=== PATIENT | male | born 1990 | race Caucasian/White ===

== ENCOUNTER 2016-07-25 15:23 | Emergency (ER) | payer BC ==
[2016-07-25 15:29] VITALS: BP 139/68; PULSE 78; RESP 17; TEMP 97.8
[2016-07-25] MEDS ORDERED: HYDROcodone/APAP 5-325MG 1 EACH TAB PO STA (15:47)
--- NOTE | 2016-07-25 15:47 | ED ---
Back Pain HPI - General Chief Complaint: Back Pain/Injury Stated Complaint: Back Pain/Middle Time Seen by Provider: 07/25/16 15:34 Source: patient, RN notes reviewed Limitations: no limitations - History of Present Illness Initial Comments: Patient is a 26-year-old male presents emergency room for evaluation of back pain. Patient states back pain began last night. Patient states the pain is primarily on the right side of his mid back. Patient denies any recent changes in physical activity, recent heavy lifting or falls. 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 Patient states that he took Tylenol with no relief of symptoms. Patient denies any numbness or tingling going down his legs. Patient denies fecal or urinary incontinence. Patient denies urinary retention. Patient denies any other symptoms or complaints. - Related Data Previous Rx's Medication Instructions Recorded HYDROcodone/APAP 5-325MG [[place] 1 tab PO Q6HR PRN #10 tab 07/25/16 5-325] Ibuprofen [Motrin] 600 mg PO Q6HR PRN #20 tab 07/25/16 Orphenadrine [Norflex] 100 mg PO Q12H PRN #10 tablet.er 07/25/16 Allergies Allergy/AdvReac Type Severity Reaction Status Date / Time No Known Allergies Allergy Verified 07/25/16 15:51 Review of Systems ROS Statement: Those systems with pertinent positive or pertinent negative responses have been documented in the HPI. ROS Other: All systems not noted in ROS Statement are negative. Past Medical History Past Medical History: No Reported History History of Any Multi-Drug Resistant Organisms: None Reported Past Surgical History: No Surgical Hx Reported Past Psychological History: No Psychological Hx Reported Smoking Status: Current every day smoker Past Alcohol Use History: Occasional Past Drug Use History: None Reported General Exam - General Exam Comments Initial Comments: Laying in exam bed, no acute distress. Limitations: no limitations General appearance: alert, in no apparent distress Head exam: Present: atraumatic, normocephalic, normal inspection Eye exam: Present: normal appearance ENT exam: Present: normal exam Neck exam: Present: normal inspection Respiratory exam: Present: normal lung sounds bilaterally. Absent: respiratory distress Cardiovascular Exam: Present: regular rate, normal rhythm, normal heart sounds Extremities exam: Present: normal inspection Back exam: Present: full ROM, muscle spasm (Right paraspinal tenderness over thoracic spine), paraspinal tenderness (Right thoracic paraspinal tenderness). Absent: vertebral tenderness Neurological exam: Present: alert, oriented X3, CN II-XII intact Psychiatric exam: Present: normal affect, normal mood Skin exam: Present: warm, dry, intact, normal color. Absent: rash Course Vital Signs 07/25/16 15:25 Temperature 97.8 F Pulse Rate 78 Respiratory 17 Rate Blood Pressure 139/68 O2 Sat by Pulse 100 Oximetry Medical Decision Making - Medical Decision Making Patient is 26-year-old male presents to the emergency room for evaluation of thoracic back pain. No known injury. Patient has no neuro deficits. Place patient on pain medications and advised him to follow-up with his primary care provider. Patient states he understands everything that was discussed with him. Return parameters discussed. Case discussed with Dr. Chisholm. Disposition Clinical Impression: Strain of thoracic region Disposition: HOME SELF-CARE Condition: Good Instructions: Back Pain (ED) Additional Instructions: Warm moist heat. Take medications as needed. Please follow up with primary care provider in 1-2 days. If any new symptom arises or symptoms worsen, return to ER as soon as possible. Prescriptions: HYDROcodone/APAP 5-325MG [[place] 5-325] 1 tab PO Q6HR PRN #10 tab PRN Reason: Pain Ibuprofen [Motrin] 600 mg PO Q6HR PRN #20 tab PRN Reason: Pain Orphenadrine [Norflex] 100 mg PO Q12H PRN #10 tablet.er PRN Reason: Muscle Pain Referrals: Hans Jansen MD [Primary Care Provider] - 1-2 days Time of Disposition: 15:48
== END 2016-07-25 16:01 | disposition home or self-care (01) ==
LOC: EC 15:23
DX: S29.012A Strain of muscle and tendon of back wall of thorax, initial encounter (principal); F17.200 Nicotine dependence, unspecified, uncomplicated; X50.1XXA Overexertion from prolonged static or awkward postures, initial encounter
CPT/HCPCS: 99283

== ENCOUNTER 2016-07-27 18:03 | Emergency (ER) | payer BC ==
[2016-07-27 18:21] VITALS: RESP 18; TEMP 98.1
--- NOTE | 2016-07-27 18:30 | ED ---
General Adult HPI - General Chief complaint: Recheck/Abnormal Lab/Rx Stated complaint: Back Pain Time Seen by Provider: 07/27/16 18:26 Source: patient, RN notes reviewed Mode of arrival: ambulatory Limitations: no limitations - History of Present Illness Initial comments: Is a 26-year-old male presents with dizziness with standing and with moving his head side to side 2 days. Patient states when he gets dizzy also feels nauseous and sometimes vomits. Patient states the dizziness comes on suddenly upon standing or moving his head side to side and subsides with laying down. Patient denies any fever/chills or head injury. Patient states this never happened to him before. Patient denies any ringing or roaring in the ears. Patient is not on any medications and has only taken one dose of the [place] and Norflex that was prescribed in for back pain 2 days ago. Patient states that the symptoms do not correlate with these doses of these medications. Patient states he's had a mild case of diarrhea. Patient denies any recent fever, chills, shortness breath, chest pain, abdominal pain, hematemesis, hematochezia , back pain, numbness, tingling, hematuria, headache, or visual changes, or any other complaints. - Related Data Previous Rx's Medication Instructions Recorded HYDROcodone/APAP 5-325MG [[place] 1 tab PO Q6HR PRN #10 tab 07/25/16 5-325] Ibuprofen [Motrin] 600 mg PO Q6HR PRN #20 tab 07/25/16 Orphenadrine [Norflex] 100 mg PO Q12H PRN #10 tablet.er 07/25/16 Meclizine [Antivert] 12.5 mg PO TID 7 Days 07/27/16 Ondansetron [Zofran] 4 mg PO Q8HR 7 Days 07/27/16 Allergies Allergy/AdvReac Type Severity Reaction Status Date / Time No Known Allergies Allergy Verified 07/27/16 18:21 Review of Systems ROS Statement: Those systems with pertinent positive or pertinent negative responses have been documented in the HPI. ROS Other: All systems not noted in ROS Statement are negative. Past Medical History Past Medical History: No Reported History History of Any Multi-Drug Resistant Organisms: None Reported Past Surgical History: No Surgical Hx Reported Past Psychological History: No Psychological Hx Reported Smoking Status: Current every day smoker Past Alcohol Use History: Occasional Past Drug Use History: None Reported General Exam - General Exam Comments Initial Comments: General: The patient is awake and alert, in no distress, and does not appear acutely ill. Eye: Mild horizontal nystagmus. Pupils are equal, round and reactive to light, extra-ocular movements are intact. No pain with extraocular movements. There is normal conjunctiva bilaterally. No signs of icterus. Ears: TMs pink and pearly with intact cone of light bilaterally. Normal external ear canals Nose: Nasal turbinates pink and moist Mouth and throat: There are moist mucous membranes and no oral lesions. Neck: The neck is supple, there is no tenderness or JVD. Cardiovascular: There is a regular rate and rhythm. No murmur, rub or gallop is appreciated. Respiratory: Lungs are clear to auscultation, respirations are non-labored, breath sounds are equal. No wheezes, stridor, rales, or rhonchi. Gastrointestinal: Soft, non-distended, non-tender abdomen without masses or organomegaly noted. There is no rebound or guarding present. Bowel sounds are unremarkable. Musculoskeletal: Normal ROM, no tenderness. Strength 5/5. Sensation intact. Radial Pulses equal bilaterally 2+. Neurological: A&O x 3. CN II-XII intact, There are no obvious motor or sensory deficits. Coordination appears grossly intact. Speech is normal. Skin: Skin is warm and dry and no rashes or lesions are noted. Psychiatric: Cooperative, appropriate mood & affect, normal judgment. Limitations: no limitations Course Vital Signs 07/27/16 07/27/16 18:18 19:36 Temperature 98.1 F 98.1 F Pulse Rate 65 72 Respiratory 18 18 Rate Blood Pressure 132/67 136/79 O2 Sat by Pulse 100 98 Oximetry Medical Decision Making - Medical Decision Making This is a 26-year-old male presents with dizziness and vomiting 2 days. On physical exam patient is neurologically intact. Mild nystagmus during eye exam. Patient is afebrile in the EC. Patient's abdomen is soft, nondistended and nontender. Patient was given Antivert and Reglan in the EC today. A CT of the brain without contrast was done and reviewed showing: No acute intracranial hemorrhage, mass effect, or midline shift is seen. Prominent adenoids are incidentally noted. Reported by Dr. Gaspar. I discussed results with patient. Discussed that patient will be given a prescription for Antivert and Reglan. I discussed that the patient's symptoms are most likely from vertigo and that he should follow-up with ENT or neurology. Discussed that patient should also follow-up with his primary care physician in one to 2 days or return to the EC for any worsening symptoms or for any further concerns. Discussed return parameters. Patient was receptive to this plan and patient will be discharged home. I discussed this case with attending physician Dr. Smith who agrees with plan as stated above. Disposition Clinical Impression: BPPV (benign paroxysmal positional vertigo) Disposition: HOME SELF-CARE Condition: Good Instructions: Benign Paroxysmal Positional Vertigo (ED) Additional Instructions: Please use Antivert and Reglan as prescribed. Please follow-up with ENT or neurology as soon as possible. Please follow-up with family doctor in the next 2 days of symptoms have not improved. Please return to emergency room if the symptoms increase or worsen or for any other concerns. Prescriptions: Meclizine [Antivert] 12.5 mg PO TID 7 Days Ondansetron [Zofran] 4 mg PO Q8HR 7 Days Referrals: Hans Jansen MD [Primary Care Provider] - 1-2 days Aram Munoz MD [STAFF PHYSICIAN] - 1-2 days Rashida Gallo MD [STAFF PHYSICIAN] - 1-2 days Time of Disposition: 19:21
[2016-07-27] MEDS ORDERED: METOCLOPRAMIDE 5 MG TAB PO STA (18:38)
[2016-07-27] MEDS ORDERED: MECLIZINE 12.5 MG TAB PO STA (18:38)
--- NOTE | 2016-07-27 19:09 | CT ---
EXAMINATION TYPE: CT brain wo con DATE OF EXAM: 07/27/2016 7:02 PM COMPARISON: NONE HISTORY: Dizziness, nausea, and numbness and tingling to bilateral legs. CT DLP: 1121.00 mGycm Automated exposure control for dose reduction was used. FINDINGS: There is no acute intracranial hemorrhage, mass effect, or midline shift identified. The ventricles and sulci are within normal limits in size. The globes are intact and the visualized sinuses are rajinder ar. IMPRESSION: NO ACUTE INTRACRANIAL HEMORRHAGE, MASS EFFECT, OR MIDLINE SHIFT IS SEEN. Prominent adenoids are incidentally noted.
[2016-07-27 19:44] VITALS: BP 136/79; PULSE 72
== END 2016-07-27 19:36 | disposition home or self-care (01) ==
LOC: EC 18:03
DX: H81.10 Benign paroxysmal vertigo, unspecified ear (principal); R11.2 Nausea with vomiting, unspecified; F17.200 Nicotine dependence, unspecified, uncomplicated
CPT/HCPCS: 70450; 99283

== ENCOUNTER 2018-02-28 04:28 | Emergency (ER) | payer BC ==
--- NOTE | 2018-02-28 05:10 | ED ---
General Adult HPI - General Chief complaint: Neuro Symptoms/Deficit Stated complaint: L arm numbness,weakness Time Seen by Provider: 02/28/18 04:42 Source: patient Mode of arrival: ambulatory Limitations: no limitations - History of Present Illness Initial comments: This patient is 27-year-old man who presents to be evaluated for some left forearm pains that developed tonight while at work. The patient states that when he flexes and extends his wrist she gets pains in the left wrist and hand. He denied any trauma, but does state that he performs the same task repeatedly at work. Patient states that the pain feels like "a pinched nerve" the patient is not having any weakness or numbness of the extremity. He is right-handed. -: hour(s) Location: left, upper extremity Radiation: non-radiation Quality: other Consistency: intermittent Improves with: none Worsens with: none Associated Symptoms: denies other symptoms - Related Data Home Medications Medication Instructions Recorded Confirmed Dextroamphetamine/Amphetamine 20 mg PO DAILY 05/25/17 05/25/17 [Adderall] Previous Rx's Medication Instructions Recorded Ibuprofen [Motrin] 600 mg PO Q8HR PRN #20 tab 05/25/17 Ibuprofen [Motrin] 600 mg PO Q8HR PRN #20 tab 02/28/18 Allergies Allergy/AdvReac Type Severity Reaction Status Date / Time No Known Allergies Allergy Verified 02/28/18 04:36 Review of Systems ROS Statement: Those systems with pertinent positive or pertinent negative responses have been documented in the HPI. ROS Other: All systems not noted in ROS Statement are negative. Constitutional: Denies: fever, chills, weakness Respiratory: Denies: cough, dyspnea Cardiovascular: Denies: chest pain, palpitations Gastrointestinal: Denies: abdominal pain, vomiting Musculoskeletal: Denies: back pain, joint swelling, arthralgia Skin: Denies: rash Neurological: Denies: headache, weakness, numbness Past Medical History Past Medical History: No Reported History History of Any Multi-Drug Resistant Organisms: None Reported Past Surgical History: No Surgical Hx Reported Past Psychological History: No Psychological Hx Reported Smoking Status: Current every day smoker Past Alcohol Use History: Occasional Past Drug Use History: None Reported General Exam Limitations: no limitations General appearance: alert, in no apparent distress Head exam: Present: atraumatic, normocephalic Eye exam: Present: normal appearance. Absent: scleral icterus, conjunctival injection ENT exam: Present: normal oropharynx Neck exam: Present: full ROM. Absent: tenderness Respiratory exam: Present: normal lung sounds bilaterally. Absent: respiratory distress, wheezes, rales, rhonchi, stridor Cardiovascular Exam: Present: regular rate, normal rhythm, normal heart sounds. Absent: systolic murmur, diastolic murmur, rubs, gallop GI/Abdominal exam: Present: soft. Absent: tenderness, guarding, rebound, rigid Extremities exam: Present: normal inspection, full ROM, normal capillary refill. Absent: tenderness Back exam: Present: normal inspection Neurological exam: Present: alert Psychiatric exam: Present: agitated Skin exam: Present: warm, dry, intact, normal color. Absent: rash Course Vital Signs 02/28/18 04:33 Temperature 98.2 F Pulse Rate 98 Respiratory 18 Rate Blood Pressure 145/94 O2 Sat by Pulse 100 Oximetry EKG Findings - EKG Comments: EKG Findings:: The EKG is similar to the comparison from 05/25/2017 - EKG Results: EKG: interpreted by RICK, sinus rhythm (With sinus arrhythmia, rate 78 bpm), normal axis (Normal), normal ST/T (Normal), no acute changes - Blocks, [place], Hypertrophy, ST Abn: AV and intraventricular conduction: right bundle branch block (fixed/ intermittent, complete/incomplete) (There appears to be partial right bundle branch block) Medical Decision Making - Lab Data Result diagrams: 02/28/18 04:45 02/28/18 04:45 Lab Results 02/28/18 02/28/18 Range/Units 04:45 04:45 WBC 9.5 (3.8-10.6) k/uL RBC 4.86 (4.30-5.90) m/uL Hgb 14.4 (13.0-17.5) gm/dL Hct 43.0 (39.0-53.0) % MCV 88.4 (80.0-100.0) fL MCH 29.7 (25.0-35.0) pg MCHC 33.6 (31.0-37.0) g/dL RDW 12.2 (11.5-15.5) % Plt Count 308 (150-450) k/uL Sodium 139 (137-145) mmol/L Potassium 4.1 (3.5-5.1) mmol/L Chloride 103 (98-107) mmol/L Carbon Dioxide 28 (22-30) mmol/L Anion Gap 8 mmol/L BUN 15 (9-20) mg/dL Creatinine 0.80 (0.66-1.25) mg/dL Est GFR (CKD-EPI)AfAm >90 (>60 ml/min/1.73 sqM) Est GFR (CKD-EPI)NonAf >90 (>60 ml/min/1.73 sqM) Glucose 105 H (74-99) mg/dL Calcium 10.0 (8.4-10.2) mg/dL Magnesium 2.2 (1.6-2.3) mg/dL Disposition Clinical Impression: Carpal tunnel syndrome of left wrist Disposition: HOME SELF-CARE Condition: Good Instructions: Paresthesia (ED) Prescriptions: Ibuprofen [Motrin] 600 mg PO Q8HR PRN #20 tab PRN Reason: Pain Is patient prescribed a controlled substance at d/c from ED?: No Referrals: Hans Jansen MD [Primary Care Provider] - 1-2 days
[2018-02-28 05:19] LABS: HGB 14.4 gm/dL (13.0-17.5); MCH 29.7 pg (25.0-35.0); MCHC 33.6 g/dL (31.0-37.0); MCV 88.4 fL (80.0-100.0); Mean Platelet Volume 6.9; Platelet Count 308 k/uL (150-450); RBC 4.86 m/uL (4.30-5.90); RDW 12.2 % (11.5-15.5); WBC 9.5 k/uL (3.8-10.6)
[2018-02-28 05:32] LABS: Anion Gap 8 mmol/L; Blood Urea Nitrogen 15 mg/dL (9-20); Carbon Dioxide 28 mmol/L (22-30); Chloride 103 mmol/L (98-107); Glucose 105 mg/dL (74-99); Magnesium 2.2 mg/dL (1.6-2.3); Potassium 4.1 mmol/L (3.5-5.1); Sodium 139 mmol/L (137-145)
[2018-02-28 05:50] VITALS: BP 134/78; PULSE 83; RESP 17; TEMP 98
== END 2018-02-28 05:50 | disposition home or self-care (01) ==
LOC: EC 04:28
DX: G56.02 Carpal tunnel syndrome, left upper limb (principal); F17.200 Nicotine dependence, unspecified, uncomplicated; Z79.899 Other long term (current) drug therapy
CPT/HCPCS: 36415; 80048; 83735; 85027; 93005; 99284

== ENCOUNTER 2021-11-21 18:38 | Inpatient (IN) | payer BC, OTHER ==
--- NOTE | 2021-11-21 19:14 | ED ---
General Adult HPI - General Chief complaint: Psychiatric Symptoms Stated complaint: Mental Health Time Seen by Provider: 11/21/21 18:50 Source: patient, police Mode of arrival: ambulatory Limitations: no limitations - History of Present Illness Initial comments: Dictation was produced using [employer] dictation software. please excuse any grammatical, word or spelling errors. Chief Complaint: 31-year-old male presents to the ER for petition saying that he is suicidal History of Present Illness: Is a 31-year-old male he presents via law enforcement. Patient was brought in for petition stating that patient has been suicidal and making suicidal statements. Patient denies such claims. States that he knows that his girlfriend was worried about him and made these claims. Patient has any psychiatric history. Denies any visual or auditory hallucinations. Denies any homicidal ideation or intent. The ROS documented in this emergency department record has been reviewed and confirmed by me. Those systems with pertinent positive or negative responses have been documented in the HPI. All other systems are other negative and/or noncontributory. PHYSICAL EXAM: General Impression: Alert and oriented x3, not in acute distress HEENT: Normocephalic atraumatic, extra-ocular movements intact, pupils equal and reactive to light bilaterally, mucous membranes moist. Cardiovascular: Heart regular rate and rhythm Chest: Able to complete full sentences, no retractions, no tachypnea Abdomen: abdomen soft, non-tender, non-distended, no organomegaly Musculoskeletal: Pulses present and equal in all extremities, no peripheral edema Motor: no focal deficits noted Neurological: CN II-XII grossly intact, no focal motor or sensory deficits noted Skin: Intact with no visualized rashes Psych: Normal affect and mood ED course: 31-year-old male presents to the emergency department via law enforcement. He is here for mental health evaluation. The patient states that patient is suicidal. Patient denies such claims. Vital Signs upon arrival are within acceptable limits. Patient denies any medical complaints. Physical examination is benign. Patient evaluated by EPS recommended inpatient psych admission. Certification filled out. - Related Data Home Medications Medication Instructions Recorded Confirmed No Known Home Medications 11/21/21 11/21/21 Allergies Allergy/AdvReac Type Severity Reaction Status Date / Time No Known Allergies Allergy Verified 11/21/21 20:36 Review of Systems ROS Statement: Those systems with pertinent positive or pertinent negative responses have been documented in the HPI. ROS Other: All systems not noted in ROS Statement are negative. Past Medical History Past Medical History: No Reported History History of Any Multi-Drug Resistant Organisms: None Reported Past Surgical History: No Surgical Hx Reported Past Psychological History: No Psychological Hx Reported Past Alcohol Use History: Occasional Past Drug Use History: None Reported General Exam Limitations: no limitations Course Vital Signs 11/21/21 11/21/21 18:39 19:57 Temperature 97.6 F 97.8 F Pulse Rate 114 H 84 Respiratory 20 12 Rate Blood Pressure 155/92 133/87 O2 Sat by Pulse 99 99 Oximetry Disposition Clinical Impression: Suicidal behavior Disposition: ADMITTED IP TO THIS HOSP Condition: Fair Referrals: None,Stated [Primary Care Provider] - 1-2 days Decision Time: 22:31
[2021-11-22] MEDS ORDERED: MAG HYDROX/AL HYDROX/SIMETH 30 ML CUP PO PRN (02:15)
[2021-11-22] MEDS ORDERED: LORazepam 1 MG TAB PO PRN (02:15)
[2021-11-22] MEDS ORDERED: MAGNESIUM HYDROXIDE 2,400 MG/10 ML CUP PO PRN (02:15)
[2021-11-22] MEDS ORDERED: ACETAMINOPHEN TAB 325 MG TAB PO PRN (02:15)
[2021-11-22] MEDS ORDERED: HALOPERIDOL LACTATE 5 MG/ML 1 ML VIAL IM PRN (02:17)
[2021-11-22] MEDS ORDERED: LORazepam 2 MG/ML INJ IM PRN (02:20)
[2021-11-22] MEDS ORDERED: haloperidoL 5 MG TAB PO PRN (02:21)
[2021-11-22 07:43] LABS: Basophils # (A) 0.1 k/uL (0-0.2); Basophils % (A) 1 %; Eosinophils # (A) 0.4 k/uL (0-0.7); Eosinophils % (A) 5 %; HCT 48.2 % (39.0-53.0); HGB 16.2 gm/dL (13.0-17.5); Lymphocytes # (A) 3.1 k/uL (1.0-4.8); Lymphocytes % (A) 40 %; MCHC 33.7 g/dL (31.0-37.0); MCV 89.1 fL (80.0-100.0); Mean Platelet Volume 7.4; Monocytes # (A) 0.4 k/uL (0-1.0); Monocytes % (A) 5 %; Neutrophils # (A) 3.7 k/uL (1.3-7.7); Neutrophils % (A) 47 %; Platelet Count 347 k/uL (150-450); RBC 5.41 m/uL (4.30-5.90); RDW 12.8 % (11.5-15.5); WBC 7.8 k/uL (3.8-10.6)
[2021-11-22] MEDS: NICOTINE 14MG/24HR PATCH TRANSDERM SCH (07:58)
[2021-11-22 08:02] LABS: ALT 14 U/L (4-49); AST 24 U/L (17-59); African American GFR (CKD) >90 (>60 ml/min/1.73 sqM); Albumin 4.5 g/dL (3.5-5.0); Alkaline Phosphatase 76 U/L (38-126); Anion Gap 8 mmol/L; Blood Urea Nitrogen 13 mg/dL (9-20); Calcium 9.3 mg/dL (8.4-10.2); Carbon Dioxide 30 mmol/L (22-30); Chloride 101 mmol/L (98-107); Glucose 94 mg/dL (74-99); Non-African American GFR(CKD) >90 (>60 ml/min/1.73 sqM); Potassium 4.5 mmol/L (3.5-5.1); Sodium 139 mmol/L (137-145); Total Bilirubin 0.4 mg/dL (0.2-1.3); Total Protein 7.8 g/dL (6.3-8.2)
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
--- NOTE | 2021-11-22 18:24 | P.HPIM ---
History of Present Illness H&P Date: 11/22/21 This is a 31-year-old male admitted to the hospital with homicidal and suicidal ideations Patient doesn't have any significant past medical history Denies any chest pain or shortness of breath Constitutional: No acute distress, conversant, pleasant Eyes: Anicteric sclerae, moist conjunctiva, no lid-lag PERRLA ENMT: NC/AT Oropharynx clear, no erythema, exudates Neck: Supple, FROM, no masses, or JVD No carotid bruits No thyromegaly Lungs: Clear to auscultation Clear to percussion Normal respiratory effort, no accessory muscle use Cardiovascular: Heart regular in rate and rhythm, No murmurs, gallops, or rubs No peripheral edema Abdominal: Soft Nontender, no guarding, rebound or rigidity Abdomen moving with respiration Normoactive bowel sounds No hepatomegaly, No splenomegaly No palp able mass No abdominal wall hernia noted Skin: Normal temperature, tone, texture, turgor No induration No subcutaneous nodules No rash, lesions No ulcers Extremities: No digital cyanosis No clubbing Pedal pulses intact and symmetrical Radial pulses intact and symmetrical Normal gait and station No calf tenderness Psychiatric:Alert and oriented to person, place and time Appropriate affect Intact judgement Neuro: Muscles Strength 5/5 in all 4 extremities Sensation to light touch grossly present throughout Cranial nerves II-XII grossly intact No focal sensory deficits Suicidal management as by psychiatry Medically stable Past Medical History Past Medical History: No Reported History History of Any Multi-Drug Resistant Organisms: None Reported Past Surgical History: No Surgical Hx Reported Smoking Status: Current every day smoker Medications and Allergies Home Medications Medication Instructions Recorded Confirmed Type No Known Home Medications 11/21/21 11/21/21 History Allergies Allergy/AdvReac Type Severity Reaction Status Date / Time No Known Allergies Allergy Verified 11/21/21 20:36 Physical Exam Vitals: Vital Signs Temp Pulse Pulse Resp BP BP Pulse Ox 11/22/21 02:50 97.8 F 71 18 142/89 99 11/22/21 02:37 97.7 F 98 20 121/78 11/21/21 19:57 97.8 F 84 12 133/87 99 11/21/21 18:39 97.6 F 114 H 20 155/92 99 Intake and Output 11/22/21 11/22/21 11/22/21 06:59 14:59 22:59 Other: Weight 59.285 kg Results CBC & Chem 7: 11/22/21 06:00 11/22/21 06:00
[2021-11-22] MEDS ORDERED: traZODone HCL 100 MG TAB PO SCH (21:00)
[2021-11-22] MEDS: QUEtiapine 100 MG TAB PO SCH (21:05)
[2021-11-23] MEDS: NICOTINE 14MG/24HR PATCH TRANSDERM SCH ×2 (10:07→11:06)
--- NOTE | 2021-11-23 13:44 | P.PN ---
Progress Note - Text Progress Note Date: 11/23/21 Interval History: Patient was seen wandering the hallways and was directable and agreeable to speak with typewriter assembler in the office. Currently, the patient is not reporting any suicidal or homicidal ideation, intention, and/he is not reporting any auditory or visual hallucinations. He is denying any paranoia or delusions. He denies any issues regarding his sleep or his appetite. The patient has been attending groups of the high level of participation. He is in agreement to take medications. He reports that he felt very dizzy after the administration of trazodone and Seroquel together. He was advised to only take one of the medications and trazodone will be discontinued. The patient states that he wants to live for his daughters. He does express continued conflict with his partner however vehemently denies any ill intent or threats of physical harm or homicidal ideation. Mental Status Exam: General Appearance: Patient appears to be stated age is alert, directable, and cooperative. Excellent hygiene and grooming. Behavior: Patient is calmly seated without any agitated behavior. Speech: Patient's speech is fluent and nonpressured. Mood/Affect: Mood is improving mildly, affect is congruent and constricted. Suicidality/Homicidality: Patient denies having any suicidal or homicidal ideation, intention, and/or plan. Perceptions: Patient denies any visual hallucinations and denies any auditory hallucinations Though content/process: There is no evidence of any delusional thought content and thought process is linear and goal-directed. Memory and concentration: AOX3, grossly intact for the purposes of this session Judgment and insight: Improving mildly Vital Signs Temp 97.8 F 11/22/21 02:50 Pulse 71 11/22/21 02:50 Resp 18 11/22/21 02:50 BP 142/89 11/22/21 02:50 Pulse Ox 99 11/22/21 02:50 FiO2 Assessment Unspecified bipolar disorder, depressive episode Tobacco use disorder Plan: -Patient continues to meet criteria for inpatient psychiatric admission for symptom stabilization and safety. Patient has signed adult voluntary form and medication consent and was placed in patient's chart. -Medications: Discontinue trazodone. Continue Seroquel 100 mg daily at bedtime for mood stabilization/depression -When necessary Ativan and Haldol for agitation/aggression. -NRT - nicotine patch -SW on board for discharge planning. Encouraged the patient to participate in milieu.
[2021-11-23] MEDS: QUEtiapine 100 MG TAB PO SCH (20:51)
[2021-11-24 06:35] VITALS: RESP 16
[2021-11-24] MEDS: NICOTINE 14MG/24HR PATCH TRANSDERM SCH (08:41)
--- NOTE | 2021-11-24 10:58 | P.PN ---
Progress Note - Text Progress Note Date: 11/24/21 Interval History: Patient was seen resting in bed and was directable and agreeable to speak with global technical writer in his room. The patient reports that he is doing well. He is currently not reporting any suicidal or homicidal ideation, intention, and/or plan. He reports no auditory or visual hallucinations. He denies any paranoia or delusions. Has been adherent with his medication is not endorsing any significant side effects at this time. He states that his fiance visited him yesterday and that the visit went well. He expresses no concerns. He is looking for to discharge tomorrow. Mental Status Exam: General Appearance: Patient appears to be stated age is alert, directable, and cooperative. Excellent hygiene and grooming. Behavior: Patient is calmly seated without any agitated behavior. Speech: Patient's speech is fluent and nonpressured. Mood/Affect: Mood is improving mildly, affect is congruent and euthymic. Suicidality/Homicidality: Patient denies having any suicidal or homicidal ideation, intention, and/or plan. Perceptions: Patient denies any visual hallucinations and denies any auditory hallucinations Though content/process: There is no evidence of any delusional thought content and thought process is linear and goal-directed. Memory and concentration: AOX3, grossly intact for the purposes of this session Judgment and insight: Improving mildly Vital Signs Temp 97.8 F 11/24/21 06:34 Pulse 58 L 11/24/21 06:34 Resp 16 11/24/21 06:34 BP 138/82 11/24/21 06:34 Pulse Ox 98 11/24/21 06:34 FiO2 Assessment Unspecified bipolar disorder, depressive episode Tobacco use disorder Plan: -Patient continues to meet criteria for inpatient psychiatric admission for symptom stabilization and safety. Patient has signed adult voluntary form and medication consent and was placed in patient's chart. -Medications: Continue Seroquel 100 mg daily at bedtime for mood stabilization/depression -When necessary Ativan and Haldol for agitation/aggression. -NRT - nicotine patch -SW on board for discharge planning. Encouraged the patient to participate in milieu.
[2021-11-24] MEDS: QUEtiapine 100 MG TAB PO SCH (21:16)
[2021-11-25 06:50] VITALS: TEMP 97.9
[2021-11-25] MEDS: NICOTINE 14MG/24HR PATCH TRANSDERM SCH (08:54)
[2021-11-25 08:56] VITALS: BP 129/80; PULSE 116
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
== END 2021-11-25 13:04 | disposition home or self-care (01) | DRG 885 ==
LOC: EC 18:38 → 3MHU 11-22 02:04
PROVIDERS: ADMIT Psychiatry & Neurology Psychiatry; ATTEND Psychiatry & Neurology Psychiatry
DX: F31.30 Bipolar disorder, current episode depressed, mild or moderate severity, unspecified (principal); R45.851 Suicidal ideations; F17.200 Nicotine dependence, unspecified, uncomplicated; F22 Delusional disorders; R45.850 Homicidal ideations; Z56.0 Unemployment, unspecified; Z79.899 Other long term (current) drug therapy; Z81.8 Family history of other mental and behavioral disorders; Z20.822 Contact with and (suspected) exposure to COVID-19
CPT/HCPCS: 80053; 82075; 84443; 85025; 87635; 99285

== ENCOUNTER 2022-04-11 18:31 | Emergency (ER) | payer MEDICAID, OTHER ==
[2022-04-11 19:35] VITALS: BP 139/88; PULSE 113; RESP 20; TEMP 98
--- NOTE | 2022-04-11 19:49 | ED ---
General Adult HPI - General Chief complaint: Extremity Injury, Lower Stated complaint: [facility] - foot injury Time Seen by Provider: 04/11/22 19:46 Source: patient, RN notes reviewed, old records reviewed Mode of arrival: ambulatory Limitations: no limitations - History of Present Illness Initial comments: 31-year-old male presenting with left foot pain. Patient had a ladder fall onto his left foot, fourth and fifth digit. He's had pain and swelling at the site of injury. No other injury reported. This occurred just prior to arrival. - Related Data Previous Rx's Medication Instructions Recorded Nicotine 14Mg/24Hr Patch [Habitrol] 1 patch TRANSDERM DAILY 30 Days 11/25/21 patch QUEtiapine [SEROquel] 100 mg PO HS 30 Days tab 11/25/21 Allergies Allergy/AdvReac Type Severity Reaction Status Date / Time No Known Allergies Allergy Verified 04/11/22 19:35 Review of Systems ROS Statement: Those systems with pertinent positive or pertinent negative responses have been documented in the HPI. ROS Other: All systems not noted in ROS Statement are negative. Past Medical History Past Medical History: No Reported History History of Any Multi-Drug Resistant Organisms: None Reported Past Surgical History: No Surgical Hx Reported Past Psychological History: No Psychological Hx Reported Smoking Status: Current every day smoker Past Alcohol Use History: None Reported Past Drug Use History: None Reported General Exam Limitations: no limitations General appearance: alert, in no apparent distress Head exam: Present: atraumatic, normocephalic Eye exam: Present: normal appearance, PERRL ENT exam: Present: normal exam Neck exam: Present: normal inspection. Absent: tenderness, meningismus Respiratory exam: Present: normal lung sounds bilaterally. Absent: respiratory distress, wheezes Cardiovascular Exam: Present: regular rate, normal rhythm GI/Abdominal exam: Present: soft. Absent: distended, tenderness Extremities exam: Present: other (Abrasion overlying the interim between the fourth and fifth digit left foot. Soft tissue swelling of both digits, no gross deformity.) Neurological exam: Present: alert, oriented X3, CN II-XII intact. Absent: motor sensory deficit Psychiatric exam: Present: normal affect, normal mood Skin exam: Present: warm, dry Course Vital Signs 04/11/22 19:33 Temperature 98 F Pulse Rate 113 H Respiratory 20 Rate Blood Pressure 139/88 O2 Sat by Pulse 99 Oximetry Medical Decision Making - Medical Decision Making 34-year-old male with left foot injury. Patient had a ladder fall onto the fourth and fifth digit. X-rays performed of the foot negative for fracture. He has a superficial laceration between the webspace which does not require suture. This is cleansed, nonadherent dressing placed. Patient is instructed on local wound care. His tetanus is updated. Disposition Clinical Impression: Contusion of foot, left Disposition: HOME SELF-CARE Condition: Fair Instructions (If sedation given, give patient instructions): Foot Contusion (ED), Skin Tear (ED) Is patient prescribed a controlled substance at d/c from ED?: No Referrals: Hans Jansen MD [Primary Care Provider] - 1-2 days Time of Disposition: 20:08
--- NOTE | 2022-04-11 19:58 | XR ---
EXAMINATION TYPE: XR foot complete LT DATE OF EXAM: 04/11/2022 COMPARISON: NONE HISTORY: Pain TECHNIQUE: 3 views FINDINGS: Metatarsals are intact. I see no fracture nor dislocation. Joint spaces are normal. Toes ap pear intact. IMPRESSION: Negative left foot exam. No fracture.
[2022-04-11] MEDS ORDERED: DIPH,PERTUS(ACELL)TETVAC-LF 0.5 ML VIAL IM ONE (20:07)
== END 2022-04-11 20:45 | disposition home or self-care (01) ==
LOC: EC 18:31
DX: S90.32XA Contusion of left foot, initial encounter (principal); F17.200 Nicotine dependence, unspecified, uncomplicated; Z23 Encounter for immunization; W11.XXXA Fall on and from ladder, initial encounter
CPT/HCPCS: 90471; 90715; 99283